=== PATIENT | male | born 1950 | race Caucasian/White ===

== ENCOUNTER 2019-11-18 15:21 | Outpatient (CLI) | payer OTHER, SELFPAY ==
--- NOTE | ~2019-11-18 | XR_ITS ---
EXAMINATION: XR chest 2V DATE: 11/18/2019 15:48 INDICATION: Shortness of breath, unspecified TECHNIQUE: PA and lateral views of the chest are obtained. COMPARISON: None available FINDINGS: The lungs are free of acute opacities. There is elevation of the right hemidiaphragm compar ed to the left. There is no pleural effusion or pneumothorax. The heart size is normal. Median sterno travis wires and mediastinal surgical clips are seen, likely from prior coronary artery bypass grafting . There are bridging osteophytes at multiple levels in the spine, consistent with diffuse idiopathic skeletal hyperostosis (DISH). IMPRESSION: 1. No acute cardiopulmonary abnormality. Reviewed, dictated and finalized at location A. N PAPER HAT MENDER
== END 2019-11-18 15:22 | disposition home or self-care (01) ==
PROVIDERS: PCP Family Medicine; Visit Provider Family Medicine
DX: R06.00 Dyspnea, unspecified (principal)
CPT/HCPCS: 71046

== ENCOUNTER 2019-11-29 07:44 | Outpatient (CLI) | payer OTHER, SELFPAY | END 2019-11-29 07:45 | disposition home or self-care (01) | PROVIDERS: PCP Family Medicine; Visit Provider Family Medicine | DX: R06.00 Dyspnea, unspecified (principal) | CPT/HCPCS: 94060; 94726; 94729 ==

== ENCOUNTER → 2020-08-10 12:58 | Outpatient (CLI) | payer OTHER, SELFPAY ==
--- NOTE | ~2020-08-10 | US_ITS ---
EXAMINATION: US retroperitoneal comp EXAM DATE: 08/10/2020 13:48 INDICATION: Localized prostatic hyperplasia with lower urinary tract symptoms including back pain, di fficulty urinating. TECHNIQUE: Multiple grayscale and Doppler images of the kidneys were obtained (by a technologist who performed the scan) and subsequently reviewed. There is no prior study for comparison. FINDINGS: Right kidney: There is normal contour and echogenicity. It measures 12.3 x 6.9 x 6.8 centimeters. Se veral lesions consistent with cysts measuring up to 1.7 cm. There is an echogenic focus peripherally in one lobular region of the kidney, could be scarring, milk of calcium within a cyst, angiomyolipoma or other solid mass. There is no hydronephrosis. Left kidney: There is normal contour and echogenicity. It measures scattered cysts up to 2.0 cm. coco timeters. There are no focal renal lesions identified. There is no hydronephrosis. There may be several small bladder diverticula. IMPRESSION: 1. Indeterminate right renal lobulation with echogenic focus. Most likely benign finding but not fur ther characterized. 2. Possible bladder diverticulosis. 3. Consider CT urogram. Reviewed, dictated and finalized at location B. IRATORY THERAPY AIDE IMPRESSION: 1. Indeterminate right renal lobulation with echogenic focus. Most likely yolanda gn finding but not further characterized. 2. Possible bladder diverticulosis. 3. Consider CT urogram.
== END ==
PROVIDERS: PCP Internal Medicine
DX: N40.1 Benign prostatic hyperplasia with lower urinary tract symptoms (principal); N28.89 Other specified disorders of kidney and ureter
CPT/HCPCS: 76770

== ENCOUNTER → 2020-09-05 15:04 | Outpatient (CLI) | payer MEDICARE, OTHER, SELFPAY ==
--- NOTE | ~2020-09-05 | CT_ITS ---
EXAMINATION: CT abdomen pelvis wo/w con DATE: 09/05/2020 16:01 INDICATION: Renal lesion. Bladder diverticulosis. Abnormal ultrasound. TECHNIQUE: Computed tomography (CT) of the abdomen and pelvis was performed without intravenous contr ast. CT of the abdomen and pelvis was then performed with a total of 130 mL Omnipaque-350 intravenous contrast using a double-bolus technique for simultaneous opacification of the renal parenchyma and r enal collecting system. The dose-length product was 2632.78 mGy-cm. COMPARISON: Ultrasound dated 08/10/2020 FINDINGS: Mild dependent atelectasis in the bilateral lower lobes. There are also few scattered tiny calcified pulmonary nodules consistent with old granulomatous disease. Heart size is normal. Atherosclerotic co ronary artery calcifications and coronary artery stenting. Median sternotomy wires and coronary arter y bypass grafting. No pericardial or pleural effusion. Diffuse hepatic steatosis with 1.7 cm cyst in the left hepatic lobe. A few tiny gallstones layering in the dependent neck of the otherwise normal g allbladder. Spleen, pancreas and bilateral adrenal glands are normal. There are several bilateral non enhancing low-attenuation renal cysts the largest measuring 1.6 cm at the lower pole of the left kidn ey. Symmetric renal enhancement. No urolithiasis or hydronephrosis. Segments of both ureters are deco mpressed without appreciable internal contrast on the delayed images likely due to peristalsis. No ur othelial irregularities identified at the bilateral renal collecting systems and contrast opacified p ortions of the ureters. A single tiny diverticulum is seen along the anterior dome of the bladder whi ch likely accounts for the lesion on prior ultrasound. There is mild colonic diverticulosis with a si gmoid predominance. There is no adjacent inflammatory change to suggest diverticulitis. Small bowel and appendix are normal. No free intraperitoneal gas or fluid. There is calcified atherosclerosis of the aorta and many of the other arteries. Small saccular aneurysm measuring 1 cm in maximal diameter arising from the anterior margin of the aorta at the portion of the inferior mesenteric artery. Tiny fat-containing left inguinal hernia. No pathologically enlarged abdominal or pelvic lymphadenopathy. There are bridging osteophytes at multiple levels in the thoracic spine, consistent with diffuse idi opathic skeletal hyperostosis (DISH). Severe lumbar spondylosis. IMPRESSION: 1. Several small bilateral renal cysts. No urolithiasis. 2. Small bladder diverticulum. 3. 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 4. Cholelithiasis. 5. Tiny fat-containing left inguinal hernia. Reviewed, dictated and finalized at location A. LATION BLOWER IMPRESSION: 1. Several small bilateral renal cysts. No urolithiasis. 2. Small bladder diverticulum. 3. 1 cm saccular aneurysm arising from the infrarenal aorta at the origin of th e inferior mesenteric artery. 4. Cholelithiasis. 5. Tiny fat-containing left inguinal hernia.
[2020-09-05 15:29] LABS: Estimated Glomerular Filt Rate 50
== END ==
PROVIDERS: PCP Internal Medicine
DX: N28.1 Cyst of kidney, acquired (principal); K40.90 Unilateral inguinal hernia, without obstruction or gangrene, not specified as recurrent; K80.20 Calculus of gallbladder without cholecystitis without obstruction
CPT/HCPCS: 74178; Q9967

== ENCOUNTER → 2020-12-19 13:23 | Outpatient (CLI) | payer MEDICARE, OTHER, SELFPAY ==
--- NOTE | ~2020-12-19 | MR_ITS ---
EXAMINATION: MR lumbar spine wo con DATE: 12/19/2020 14:30 INDICATION: Low back pain. TECHNIQUE: Magnetic resonance imaging (MRI) of the lumbar spine was performed without intravenous con trast. Sequences included sagittal T2-weighted FSE, sagittal T2-weighted FS FSE, sagittal T1-weighted FSE, and axial T2-weighted FSE. COMPARISON: Lumbar spine MRI 10/30/2018 FINDINGS: There is 11 degrees dextroscoliosis of lumbar spine. Vertebral body heights are normal. The re is mildly decreased disc height at L1-L2, moderately decreased disc height at L2-L3 and L3-L4, sev erely decreased disc height at L4-L5, and moderately decreased disc height at L5-S1. The distal spina l cord signal intensity is normal. The conus medullaris is at L1. The following disc levels are speci fically discussed: L1-L2: The disc is bulging and has an annular fissure. There is mild bilateral facet joint osteoarthr itis. There is mild bilateral neural foraminal stenosis. There is mild central canal stenosis. L2-L3: The disc is bulging and has an annular fissure. There is moderate bilateral facet joint osteoa rthritis. There is mild right and moderate left neural foraminal stenosis. There is mild central nicolasa l stenosis. L3-L4: The disc is bulging and has an annular fissure. There is mild right and moderate left facet petr int osteoarthritis. There is mild bilateral neural foraminal stenosis. There is mild central canal st enosis. L4-L5: The disc is bulging. There is moderate right and mild left facet joint osteoarthritis. There i s moderate bilateral neural foraminal stenosis. There is mild central canal stenosis. L5-S1: The disc is bulging and has an annular fissure. There is severe bilateral facet joint osteoart hritis. There is mild right and moderate left neural foraminal stenosis. There is mild central canal stenosis. IMPRESSION: 1. Severe lumbar spondylosis, stable from 10/30/2018. Reviewed, dictated and finalized at location A.
== END ==
PROVIDERS: PCP Internal Medicine; Visit Provider Internal Medicine
DX: M47.896 Other spondylosis, lumbar region (principal)
CPT/HCPCS: 72148

== ENCOUNTER → 2021-01-14 09:29 | Outpatient (CLI) | payer MEDICARE, OTHER, SELFPAY ==
--- NOTE | ~2021-01-14 | CT_ITS ---
EXAMINATION: CTA abdomen pelvis DATE: 01/14/2021 10:11 INDICATION: Abdominal aortic aneurysm without rupture TECHNIQUE: Computed tomographic angiography (CTA) of the abdomen and pelvis was performed with 100 mL Omnipaque-350 intravenous contrast. Maximum intensity projection 3D-reconstructions of the aorta and other arteries were constructed by the technologist on a separate workstation. The dose-length produ ct (DLP) was 1035.55 mGy-cm. Automated exposure control and iterative reconstruction technique were e mployed. COMPARISON: 09/05/2020 FINDINGS: Minimal dependent atelectasis is present in the lung bases. The heart size is normal. There is a 1.7 cm cyst of the left hepatic lobe. The spleen, pancreas, and adrenal glands are normal. Ston es are present in the nondistended gallbladder. Cysts of the kidneys measure up to 1.8 cm on the left . There is a stable 1 cm saccular aneurysm at the anterior aspect of the infrarenal abdominal aorta w ithout significant change. There are changes of endoluminal stent graft repair. No pathologically enl arged abdominal or pelvic lymph nodes are identified. There is no free intraperitoneal gas or evidenc e of bowel obstruction. There is severe lumbar spondylosis. There is a tiny fat-containing umbilical hernia. IMPRESSION: 1. 1 cm saccular aneurysm of the infrarenal abdominal aorta without significant change. 2. Cholelithiasis without evidence of cholecystitis. Reviewed, dictated and finalized at location B.
[2021-01-14 09:57] LABS: Estimated Glomerular Filt Rate 54
== END ==
DX: I71.4 Abdominal aortic aneurysm, without rupture (principal); K80.20 Calculus of gallbladder without cholecystitis without obstruction
CPT/HCPCS: 74174; Q9967

== ENCOUNTER → 2021-11-16 08:51 | Outpatient (CLI) | payer MEDICARE, SELFPAY ==
--- NOTE | ~2021-11-16 | MR_ITS ---
EXAMINATION: MR lumbar spine wo con DATE: 11/16/2021 10:07 INDICATION: Right-sided low back pain. TECHNIQUE: Magnetic resonance imaging (MRI) of the lumbar spine was performed without intravenous con trast. Sequences included sagittal T2-weighted FSE, sagittal T2-weighted FS FSE, sagittal T1-weighted FSE, and axial T2-weighted FSE. COMPARISON: Lumbar spine MRI 12/19/2020 FINDINGS: There is 10 degrees dextroscoliosis of thoracolumbar spine. Vertebral body heights are norm al. There is mildly decreased disc height at L1-L2, moderately decreased disc height at L2-L3 and L3- L4, and severely decreased disc height at L4-L5 and L5-S1 with endplate remodeling. The distal spinal cord signal intensity is normal. The conus medullaris is at L1. The following disc levels are specif ically discussed: L1-L2: The disc is bulging and has an annular fissure. There is moderate bilateral facet joint osteoa rthritis. There is mild bilateral neural foraminal stenosis. There is no central canal stenosis. L2-L3: The disc is bulging and has an annular fissure. There is mild right and moderate left facet petr int osteoarthritis. There is mild bilateral neural foraminal stenosis. There is mild central canal st enosis. L3-L4: The disc is bulging and has an annular fissure. There is mild right and moderate left facet petr int osteoarthritis. There is mild bilateral neural foraminal stenosis. There is no central canal sten osis. L4-L5: The disc is bulging and has an annular fissure. There is severe right and moderate left facet joint osteoarthritis. There is moderate bilateral neural foraminal stenosis. There is no central nicolasa l stenosis. L5-S1: The disc is bulging and has an annular fissure. There is severe bilateral facet joint osteoart hritis. There is mild right and moderate left neural foraminal stenosis. There is mild central canal stenosis. IMPRESSION: 1. Severe lumbar spondylosis, stable from 12/19/2020 2. Thoracolumbar dextroscoliosis. Reviewed, dictated and finalized at location E. LINKER
== END ==
PROVIDERS: PCP Internal Medicine
DX: M47.26 Other spondylosis with radiculopathy, lumbar region (principal)
CPT/HCPCS: 72148

== ENCOUNTER → 2023-01-17 08:32 | Outpatient (CLI) | payer MEDICARE, SELFPAY ==
--- NOTE | ~2023-01-17 | MR_ITS ---
MRI of the lumbar spine Clinical History: Back pain Technique: Axial T2-weighted images, and sagittal T1-weighted, T2-weighted, and T2 fat-sat images wer e acquired. COMPARISON: 11/16/2021 Findings: There is no fracture or subluxation lumbar spine. Vertebral bodies maintain normal height a nd alignment. Osseous alignment is unchanged. No suspicious bone marrow signal abnormality identified . At L1-L2, there is mild diffuse disc bulge and mild facet joint hypertrophy. No spinal canal stenosis . Minimal left neural foraminal narrowing present. Right neural foramen preserved. At L2-L3, there is mild diffuse disc bulge with facet arthropathy. No domingo spinal canal stenosis. Th ere is mild to moderate left neural foraminal narrowing. Right neural foramen preserved. At L3-L4, there is mild diffuse disc bulge with facet arthropathy. No spinal canal stenosis. There is mild to moderate left neural foraminal narrowing and and mild right neural foraminal narrowing. At L4-L5, there is disc bulge and facet arthropathy. No domingo spinal canal stenosis. There is severe right neural foraminal narrowing and minimal left neural foraminal narrowing. At L5-S1, there is mild disc bulge with facet arthropathy. No spinal canal stenosis. There is advance d left neural foraminal narrowing and moderate right neural foraminal narrowing. Paravertebral soft tissues are unremarkable. Impression: Degenerative spondylosis, as detailed above, with neural foraminal narrowing throughout the lumbar sp ine. No domingo spinal canal stenosis. No fracture or subluxation. Reviewed, dictated and finalized at [facility]. Impression: Degenerative spondylosis, as detailed above, with neural foraminal narrowing th roughout the lumbar spine. No domingo spinal canal stenosis. No fracture or subluxation.
== END ==
PROVIDERS: PCP Internal Medicine; Visit Provider Anesthesiology Pain Medicine
DX: M47.817 Spondylosis without myelopathy or radiculopathy, lumbosacral region (principal)
CPT/HCPCS: 72148

== ENCOUNTER → 2023-07-23 08:30 | Outpatient (CLI) | payer MEDICARE, SELFPAY ==
--- NOTE | ~2023-07-23 | XR_ITS ---
AP view of the pelvis and AP and lateral views of the bilateral hips Clinical history: Pain Findings: No acute fracture or dislocation is seen. Osseous alignment is anatomic. Minimal degenerati ve change of both hips noted. Soft tissues are unremarkable. Impression: Minimal degenerative change of both hip joints. Reviewed, dictated and finalized at location . Impression: Minimal degenerative change of both hip joints.
== END ==
PROVIDERS: PCP Internal Medicine; Visit Provider Anesthesiology Pain Medicine
DX: M25.551 Pain in right hip (principal); M25.552 Pain in left hip
CPT/HCPCS: 73521

== ENCOUNTER → 2023-08-21 08:22 | Outpatient (CLI) | payer MEDICARE, SELFPAY ==
--- NOTE | ~2023-08-21 | US_ITS ---
EXAMINATION: US aorta DATE: 08/21/2023 08:49 INDICATION: Abdominal aortic aneurysm without rupture TECHNIQUE: Grayscale, color Doppler, and pulsed Doppler images of the aorta and common iliac arteries were obtained. COMPARISON: CT, 01/14/2021 FINDINGS: The abdominal aorta measures 2.7 cm in its proximal portion. The remainder of the aorta is not visualized due to overlying bowel gas. IMPRESSION: 1. Incomplete assessment of the abdominal aorta due to overlying bowel gas. Consider CTA. Reviewed, dictated and finalized at location A. CUTTER AND REAMER IMPRESSION: 1. Incomplete assessment of the abdominal aorta due to overlying bowel gas. 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
== END ==
PROVIDERS: PCP Internal Medicine; Visit Provider Nurse Practitioner
DX: I71.40 Abdominal aortic aneurysm, without rupture, unspecified (principal)
CPT/HCPCS: 76775

== ENCOUNTER → 2023-09-01 08:17 | Outpatient (CLI) | payer MEDICARE, SELFPAY ==
--- NOTE | ~2023-09-01 | CT_ITS ---
CT Scan of the Chest without Contrast: Clinical Indication: Cough, disorder of diaphragm Technique: Contiguous sections were acquired throughout the chest without intravenous contrast. Dose reduction technique was used on this scan by utilizing automated exposure control and iterative recon struction technique. The dose-length product (DLP) was 771.71 mGy-cm. Findings: There is no evidence of any significant mediastinal, hilar or axillary lymphadenopathy. Coronary john ry calcifications are present. There is no evidence of pleural or pericardial effusion. There is probable minimal bibasilar chronic interstitial change with calcified granulomas present. Images through the upper abdomen reveal small gallstones. There is extensive DISH of the thoracic spi ne. There is elevation/eventration of the right hemidiaphragm. Impression: Probable minimal bibasilar chronic interstitial change versus minimal atelectatic change. Elevation/eventration right hemidiaphragm. This is stable as compared to prior abdominal pelvic CT da irina 01/14/2021. Cholelithiasis. Reviewed, dictated and finalized at location . UP WORKER Impression: Probable minimal bibasilar chronic interstitial change versus minimal atelectat ic change. Elevation/eventration right hemidiaphragm. This is stable as compared to prior abdominal pelvic CT dated 01/14/2021. Cholelithiasis.
== END ==
PROVIDERS: Visit Provider Nurse Practitioner
DX: J98.6 Disorders of diaphragm (principal); K80.20 Calculus of gallbladder without cholecystitis without obstruction
CPT/HCPCS: 71250

== ENCOUNTER → 2023-11-19 10:20 | Outpatient (CLI) | payer MEDICARE, SELFPAY ==
--- NOTE | ~2023-11-19 | XR_ITS ---
EXAMINATION: XR lumbar spine min 4V DATE: 11/19/2023 11:05 INDICATION: Spinal stenosis, lumbar region with neurogenic claudication. TECHNIQUE: 5 views of lumbar spine including standing and flexion and extension views were obtained. COMPARISON: Lumbar spine radiograph 07/26/2019, MRI 01/17/2023 FINDINGS: There is 9 degrees dextrocurvature of lumbar spine. Vertebral body heights are normal. Ther e is mildly decreased disc height at L2-L3, moderately decreased disc height at L3-L4, and severely d ecreased disc height at L4-L5 and L5-S1. The spine is hypomobile with flexion and extension. There is multilevel severe facet joint osteoarthritis, worse in lower lumbar spine. There is a stent graft in abdominal aorta. IMPRESSION: 1. Severe lumbar spondylosis. Reviewed, dictated and finalized at location A. TOOL MAKER
== END ==
DX: M48.062 Spinal stenosis, lumbar region with neurogenic claudication (principal); M47.817 Spondylosis without myelopathy or radiculopathy, lumbosacral region; M43.06 Spondylolysis, lumbar region
CPT/HCPCS: 72110

== ENCOUNTER 2024-01-04 08:35 | Outpatient (CLI) | payer MEDICARE, SELFPAY ==
--- NOTE | ~2024-01-04 | US_ITS ---
EXAMINATION: US aorta DATE: 01/04/2024 09:15 INDICATION: Abdominal aortic aneurysm. TECHNIQUE: Grayscale, color Doppler, and pulsed Doppler images of the aorta and common iliac arteries were obtained. COMPARISON: Ultrasound 08/21/2023 FINDINGS: The aorta demonstrates a partially visualized stent. There is a fusiform aneurysm of abdominal aorta measuring 3.4 cm. The right common iliac artery is normal in caliber. The left common iliac artery is normal in caliber. IMPRESSION: 1. 3.4 cm fusiform aneurysm of abdominal aorta with stent graft. Reviewed, dictated and finalized at location A.
== END 2024-01-04 08:36 ==
LOC: MICIMG 08:36
PROVIDERS: PCP Nurse Practitioner; Visit Provider Nurse Practitioner
DX: I71.40 Abdominal aortic aneurysm, without rupture, unspecified (principal)
CPT/HCPCS: 76775

== ENCOUNTER 2024-04-29 10:16 | Outpatient (CLI) | payer MEDICARE, SELFPAY ==
--- NOTE | ~2024-04-29 | CT_ITS ---
CT Scan of the Chest without Contrast: Clinical Indication: Lung cancer screening, nicotine dependence Technique: Contiguous sections were acquired throughout the chest without intravenous contrast. Dose reduction technique was used on this scan by utilizing automated exposure control and iterative recon struction technique. The dose-length product (DLP) was 331.76 mGy-cm. COMPARISON: 09/01/2023 Findings: There is no evidence of any significant mediastinal, hilar or axillary lymphadenopathy. Coronary john ry calcifications are present. There is no evidence of pleural or pericardial effusion. Several small calcified granulomas are present. There is probable minimal peripheral chronic intersti tial change. Images through the upper abdomen reveal small calcified gallstones. Impression: Lung RADS 2: Benign appearance. 12 month follow-up screening CT advised. Reviewed, dictated and finalized at [facility]. Impression: Lung RADS 2: Benign appearance. 12 month follow-up screening CT advised.
== END 2024-04-29 10:17 ==
PROVIDERS: PCP Internal Medicine; Visit Provider Internal Medicine
DX: Z12.2 Encounter for screening for malignant neoplasm of respiratory organs (principal); Z87.891 Personal history of nicotine dependence
CPT/HCPCS: 71271

== ENCOUNTER 2024-05-06 12:45 | Outpatient (CLI) | payer MEDICARE, SELFPAY ==
--- NOTE | ~2024-05-06 | MR_ITS ---
EXAMINATION: MR sacroiliac isaac wo con DATE: 05/06/2024 13:53 INDICATION: Sacroiliitis, not elsewhere classified. TECHNIQUE: Magnetic resonance imaging (MRI) of the sacroiliac joints was performed without intravenou s contrast. COMPARISON: Pelvis radiograph 05/06/2024 FINDINGS: There is lumbar dextrocurvature and severe spondylosis. No fracture. There is moderate oste oarthritis of the sacroiliac joints. IMPRESSION: 1. Moderate osteoarthritis of the sacroiliac joints. No evidence of inflammatory arthropathy. Reviewed, dictated and finalized at location A. IMPRESSION: 1. Moderate osteoarthritis of the sacroiliac joints. No evidence of inflammator y arthropathy.
--- NOTE | ~2024-05-06 | XR_ITS ---
AP view of the pelvis and AP and lateral views of the left hip Clinical history: Sacroiliitis Findings: No acute fracture or dislocation is seen. Osseous alignment is anatomic. Bilateral hip and SI joint spaces are preserved. Soft tissues are unremarkable. Impression: No significant abnormality is seen. Reviewed, dictated and finalized at [facility]. Impression: No significant abnormality is seen.
== END 2024-05-06 12:46 ==
PROVIDERS: PCP Nurse Practitioner; Visit Provider Anesthesiology Pain Medicine
DX: M46.1 Sacroiliitis, not elsewhere classified (principal)
CPT/HCPCS: 72195; 73502

== ENCOUNTER 2024-12-02 13:59 | Outpatient (CLI) | payer MEDICARE, SELFPAY | END 2024-12-02 14:00 | disposition home or self-care (01) | LOC: MICIMG 14:00 | PROVIDERS: PCP Internal Medicine | DX: M53.3 Sacrococcygeal disorders, not elsewhere classified (principal); M43.06 Spondylolysis, lumbar region | CPT/HCPCS: 72148 ==

== ENCOUNTER 2025-03-23 11:21 | Outpatient (CLI) | payer MEDICARE, SELFPAY ==
--- NOTE | ~2025-03-23 | MR_ITS ---
MRI of the lumbar spine Clinical History: Spinal stenosis Technique: Axial T2-weighted images, and sagittal T1-weighted, T2-weighted, and and T2 fat-sat images were acquired. COMPARISON: 12/02/2024 Findings: No acute fracture or subluxation. Stable osseous alignment from prior exam. No suspicious b one marrow signal abnormality. At L1-L2, there is disc desiccation with minimal bulge and moderate facet arthropathy. No central can al stenosis. Neural foramina are preserved. At L2-L3, there is moderate degenerative disc narrowing. There is mild disc bulge with moderate to ad vanced facet arthropathy. No central canal stenosis. There is moderate to advanced left neural forami nal narrowing. Right neural foramen preserved. L3-L4, there is moderate to advanced degenerative disc narrowing. There is mild disc bulge with moder ate facet arthropathy. No central canal stenosis. There is mild bilateral neural foraminal narrowing. At L4-L5, there is advanced degenerative disc narrowing. There is mild diffuse disc bulge with modera te facet arthropathy. No central canal stenosis. There is severe right neural foraminal narrowing. Le ft neural foramen may be minimally narrowed. At L5-S1, there is advanced degenerative disc narrowing. There is mild diffuse disc bulge with modera te to advanced facet arthropathy. No central canal stenosis. There is severe bilateral neural foramin al compromise. Paravertebral soft tissues are unremarkable. Impression: Moderate to advanced degenerative spondylosis, with diffuse degenerative disc narrowing and multileve l neural foraminal narrowing, as detailed above. Reviewed, dictated and finalized at [facility]. Impression: Moderate to advanced degenerative spondylosis, with diffuse degenerative disc n arrowing and multilevel neural foraminal narrowing, as detailed above.
== END 2025-03-23 11:22 | disposition home or self-care (01) ==
LOC: GOSHIMG 11:22
PROVIDERS: PCP Anesthesiology Pain Medicine; Visit Provider Anesthesiology Pain Medicine
DX: M48.062 Spinal stenosis, lumbar region with neurogenic claudication (principal); M47.26 Other spondylosis with radiculopathy, lumbar region
CPT/HCPCS: 72148

== ENCOUNTER 2025-04-13 12:42 | Outpatient (CLI) | payer MEDICARE, SELFPAY ==
--- NOTE | ~2025-04-13 | CT_ITS ---
Noncontrast CT scan of the lumbar spine CLINICAL HISTORY: Lumbar spondylosis TECHNIQUE: Axial noncontrast imaging of the lumbar spine was performed. Sagittal and coronal reformat irina images were constructed. Dose reduction technique was used on this scan by utilizing automated ex posure control and iterative reconstruction technique. The dose-length product (DLP) was 965.33 mGy-c m. FINDINGS: Acute fracture or subluxation identified. Vertebral bodies maintain normal height and align ment. There are orthopedic bolts transfixing the left SI joint. At L1-L2, there is moderate degenerative distended. There is minimal disc bulge and mild to moderate facet arthropathy. No central canal stenosis. Probable mild to moderate bilateral neural foraminal na rrowing. At L2-L3, there is mild to moderate degenerative distended. There is mild disc bulge with minimal fac et arthropathy. No definite central canal stenosis. There is moderate to advanced left neural foramin al narrowing. Probable minimal right neural foraminal narrowing. L3-L4, there is advanced under distention. There is mild disc bulge with mild to moderate facet arthr opathy. No definite central canal stenosis. There is moderate to advanced bilateral neural foraminal narrowing. At L4-L5, there is severe degenerative disc narrowing. There is mild disc bulge. There is moderate fa cet arthropathy. No definite central canal stenosis. There is probable advanced right neural foramina l narrowing, and moderate left neural foraminal narrowing. At L5-S1, there is advanced degenerative distended. There is diffuse disc bulge with moderate facet a rthropathy. No definite central canal stenosis. There is severe bilateral neural foraminal narrowing. Paravertebral soft tissues are unremarkable. Aortic stent graft present. Impression: Moderate to severe degenerative spondylitic changes, as detailed above. Reviewed, dictated and finalized at location M. Impression: Moderate to severe degenerative spondylitic changes, as detailed above.
--- NOTE | ~2025-04-13 | XR_ITS ---
3 VIEWS LUMBAR SPINE Ordering provider: Young Allan History: . lumbar radiculopathy . Comparison: November 19, 2023 FINDINGS: VERTEBRAL BODIES:Dextroscoliosis. No visible fracture or subluxation. Degenerative changes of the sp ine. Lumbarization of S1. Postoperative changes in the left sacroiliac joint. Right sacroiliitis. DISK SPACES: Narrowing of all the disc spaces. Multilevel facet joint disease. SOFT TISSUES: Atherosclerotic changes of the aorta with stent graft. IMPRESSION: No acute osseous abnormality lumbar spine. Multilevel degenerative disc disease. Reviewed, dictated and finalized at location A.
== END 2025-04-13 12:43 | disposition home or self-care (01) ==
LOC: GOSHIMG 12:43
DX: M47.26 Other spondylosis with radiculopathy, lumbar region (principal); M51.369 Other intervertebral disc degeneration, lumbar region without mention of lumbar back pain or lower extremity pain
CPT/HCPCS: 72110; 72131